=== PATIENT | male | born 1990 | race Two or more races ===

== ENCOUNTER → 2016-12-11 | Outpatient (CLI) | payer MEDICAID ==
[~2016-12-11] MED LIST: ALBUTEROL SULF 2.5 MG/0.5ML(0.5%) NEB SOLN ONE
== END | disposition home or self-care (01) ==
LOC: RT 08:57
PROVIDERS: ATTEND Internal Medicine Pulmonary Disease
DX: J45.909 Unspecified asthma, uncomplicated (principal)
CPT/HCPCS: 94060; 94640